=== PATIENT | female | born 1965 | race Caucasian/White ===

== ENCOUNTER 2019-09-08 13:31 | Outpatient (CLI) | payer BC, SELFPAY ==
--- NOTE | ~2019-09-08 | US_ITS ---
US venous doppler LE RT DATE: 09/08/2019 14:05 INDICATION: Right leg pain TECHNIQUE: Real-time and color flow imaging and Doppler analysis of the veins of the right lower extr emity COMPARISON: None FINDINGS: The right greater saphenous vein is patent. There is spontaneous and phasic flow and normal augmentation and color flow signal and normal compression of the deep veins of the right lower extre mity. IMPRESSION: No evidence of deep venous thrombosis of right lower extremity Reviewed, dictated and finalized at Location A. Reviewed, dictated and finalized at location A.
== END 2019-09-08 13:32 | disposition home or self-care (01) ==
PROVIDERS: Visit Provider Podiatrist Foot & Ankle Surgery
DX: M79.661 Pain in right lower leg (principal)
CPT/HCPCS: 93971

== ENCOUNTER 2020-08-07 14:40 | Outpatient (CLI) | payer BC, SELFPAY ==
--- NOTE | 2020-08-07 | ECG_ITS ---
Measurements Intervals [place] Rate: 77 P: 32 SC: 171 QRS: 48 QRSD: 101 T: 50 QT: 393 QTc: 447 Interpretive Statements SINUS RHYTHM NORMAL ECG Electronically Signed On 08-07-2020 15:19:03 MANAGER UNIX by Varinder Metcalf D.O.
== END 2020-08-07 14:41 | disposition home or self-care (01) ==
PROVIDERS: PCP Family Medicine; Visit Provider Podiatrist Foot & Ankle Surgery
DX: R03.0 Elevated blood-pressure reading, without diagnosis of hypertension (principal)
CPT/HCPCS: 93005

== ENCOUNTER 2021-03-26 14:17 | Outpatient (CLI) | payer BC, SELFPAY ==
--- NOTE | ~2021-03-26 | US_ITS ---
EXAMINATION: US venous doppler LE RT EXAM DATE: 03/26/2021 14:42 INDICATION: Right lower extremity pain. TECHNIQUE: Multiple grayscale, color flow and Doppler images of the right lower extremity deep venous system were obtained and reviewed. Comparison is made to prior examination from 09/08/2019. FINDINGS: The right common femoral, femoral and profunda veins demonstrate normal color flow, respira tory variation, augmentation and compressibility. Compressibility, color flow confirmed within the r ight popliteal, posterior tibial, peroneal, and greater saphenous veins. IMPRESSION: 1. No right lower extremity deep venous thrombosis. Reviewed, dictated and finalized at location A.
== END 2021-03-26 14:18 | disposition home or self-care (01) ==
LOC: ANHIMG 14:20
PROVIDERS: PCP Family Medicine; Visit Provider Podiatrist Foot & Ankle Surgery
DX: M79.606 Pain in leg, unspecified (principal)
CPT/HCPCS: 93971

== ENCOUNTER → 2021-07-02 14:10 | Outpatient (CLI) | payer BC, SELFPAY ==
--- NOTE | ~2021-07-02 | MM_ITS ---
EXAMINATION: MM screening [facility] BI w daljit HISTORY: Screening mammogram TECHNIQUE: Craniocaudal and mediolateral oblique 3-D tomosynthesis images were obtained and synthetic 2-D images were generated. CAD analysis was submitted and interpreted. COMPARISON: 08/27/2018, 02/07/2013, 10/03/2010 BREAST PARENCHYMAL COMPOSITION: There are scattered areas of fibroglandular density. FINDINGS: There is no evidence of suspicious mass, calcification, or architectural distortion to sugg est malignancy in either breast. There has been no suspicious interval change. IMPRESSION: 1. No mammographic evidence of malignancy. 2. Recommend routine screening mammography in one year. BI-RADS Category 1: Negative Reviewed, dictated and finalized at location A. RAM EVALUATION CONSULTANT
== END ==
PROVIDERS: Visit Provider Obstetrics & Gynecology
DX: Z12.31 Encounter for screening mammogram for malignant neoplasm of breast (principal)
CPT/HCPCS: 77063; 77067

== ENCOUNTER → 2022-04-08 10:27 | Outpatient (CLI) | payer BC, SELFPAY ==
--- NOTE | ~2022-04-08 | XR_ITS ---
EXAM: XR elbow RT 2V, XR elbow LT 2V DATE: 04/08/2022 10:57 HISTORY: M25.50 - Pain in unspecified joint . COMPARISON: None available. FINDINGS: Normal mineralization. No fracture or dislocation. No lytic or blastic lesion. Joint space s maintained. Mild medial and lateral epicondylar enthesopathy bilaterally. No erosion or periosteal change. Soft tissues within normal limits. IMPRESSION: Mild bilateral medial and lateral epicondylar enthesopathy may reflect the presence of ep icondylitis in the appropriate clinical context. Reviewed, dictated and finalized at location K. IMPRESSION: Mild bilateral medial and lateral epicondylar enthesopathy may refl ect the presence of epicondylitis in the appropriate clinical context.
--- NOTE | ~2022-04-08 | XR_ITS ---
EXAM: XR knee RT 3V, XR knee LT 3V DATE: 04/08/2022 10:57 HISTORY: M25.50 - Pain in unspecified joint . COMPARISON: None available. FINDINGS: Decreased mineralization. No fracture or dislocation. No lytic or blastic lesion. Severe, bone on bone medial joint space narrowing on the left, with varus alignment. Severe lateral joint spa ce narrowing on the right moderate tricompartmental osteophytosis. Moderate volume bilateral knee buck nt fluid No erosion or periosteal change. Soft tissues within normal limits. IMPRESSION: Severe bilateral knee osteoarthritis. Moderate bilateral knee joint effusions. Reviewed, dictated and finalized at location K. IMPRESSION: Severe bilateral knee osteoarthritis. Moderate bilateral knee joint effusions.
== END ==
PROVIDERS: PCP Family Medicine; Visit Provider Physician Assistant
DX: M25.50 Pain in unspecified joint (principal); M17.0 Bilateral primary osteoarthritis of knee; M25.461 Effusion, right knee; M25.462 Effusion, left knee
CPT/HCPCS: 73070; 73562

== ENCOUNTER → 2022-08-06 09:50 | Outpatient (CLI) | payer BC, SELFPAY ==
--- NOTE | ~2022-08-06 | XR_ITS ---
Right foot Technique: AP and lateral views were obtained. Clinical History: Pain Findings: No acute fracture or dislocation is seen. Osseous alignment is anatomic. Orthopedic screws are present traversing the talonavicular joint and the subtalar joint. Remaining visualized joint spa myron are intact. Soft tissues are unremarkable. Impression: Orthopedic fixation of the talonavicular and subtalar joints. No other significant findings. Reviewed, dictated and finalized at location M. ING AND PRINTING MACHINE OPERATOR Impression: Orthopedic fixation of the talonavicular and subtalar joints. No other significant findings.
--- NOTE | ~2022-08-06 | XR_ITS ---
Left foot Technique: AP and lateral standing views were obtained. Clinical History: Pain Findings: No acute fracture or dislocation is seen. Osseous alignment is anatomic. Joint spaces are p reserved without erosive or degenerative change. Soft tissues are unremarkable. Impression: Unremarkable left foot radiographs. Reviewed, dictated and finalized at location . H LAY OUT TECHNICIAN Impression: Unremarkable left foot radiographs.
--- NOTE | ~2022-08-06 | XR_ITS ---
Left Knee Technique: AP, lateral, and sunrise views were obtained. Clinical History: Pain Findings: No fracture or dislocation is seen. There is medial compartment narrowing. There is mild tr icompartmental degenerative spurring. Soft tissues are unremarkable. No joint effusion is seen. Impression: Mild tricompartmental degenerative spurring, with moderate medial compartment narrowing. Reviewed, dictated and finalized at location . RNITY NURSE Impression: Mild tricompartmental degenerative spurring, with moderate medial compartment n arrowing.
--- NOTE | ~2022-08-06 | XR_ITS ---
Right ankle Technique: AP and lateral views were obtained. Clinical History: Pain Findings: No acute fracture or dislocation is seen. Osseous alignment is anatomic. Orthopedic screws are present traversing the talonavicular and subtalar joints. Probable fusion across the subtalar buck nt noted.. Soft tissues are otherwise unremarkable. Impression: No acute abnormality. Orthopedic screws traversing the subtalar and talonavicular joints. Correlate with surgical history. Reviewed, dictated and finalized at location M. UROLOGY Impression: No acute abnormality. Orthopedic screws traversing the subtalar and talonavicular joints. Correlate w ith surgical history.
--- NOTE | ~2022-08-06 | XR_ITS ---
Right elbow Technique: AP and lateral views were obtained. Clinical History: Pain Findings: No acute fracture or dislocation is seen. Osseous alignment is anatomic. Joint spaces are p reserved. There is no displacement of the fat pads, and soft tissues are unremarkable. Impression: Unremarkable radiographs. Reviewed, dictated and finalized at location . OLOGY TECHNICIAN Impression: Unremarkable radiographs.
--- NOTE | ~2022-08-06 | XR_ITS ---
Left Hand Technique: PA and lateral views were obtained. Clinical History: Pain Findings: No acute fracture or dislocation is seen. Osseous alignment is anatomic. Moderate degenerat danielle change present at the first CMC joint. Remaining joint spaces are preserved. Soft tissues are unr emarkable. Impression: Moderate degenerative change at the first CMC joint. Reviewed, dictated and finalized at location . UNT EXECUTIVE METALWORKING Impression: Moderate degenerative change at the first CMC joint.
--- NOTE | ~2022-08-06 | XR_ITS ---
Right Knee Technique: AP and lateral views were obtained. Clinical History: Pain Findings: No fracture or dislocation is seen. There is moderate lateral joint line spurring with prob able lateral compartment narrowing. There is also moderate spurring of the patellofemoral compartment and medial joint line. Soft tissues are unremarkable. No joint effusion is seen. Impression: Moderate tricompartmental degenerative spurring, with probable narrowing of the lateral compartment. Reviewed, dictated and finalized at location M. ER MACHINE OPERATOR Impression: Moderate tricompartmental degenerative spurring, with probable narrowing of the lateral compartment.
--- NOTE | ~2022-08-06 | XR_ITS ---
Left Shoulder Technique: AP and axillary views were obtained. Clinical History: Pain Findings: No fracture or dislocation is seen. Osseous alignment is anatomic. The glenohumeral and acr omioclavicular joint spaces are preserved. Soft tissues are unremarkable. Impression: Unremarkable left shoulder radiographs. Reviewed, dictated and finalized at [facility]. IMEDIA PRODUCTION ASSISTANT Impression: Unremarkable left shoulder radiographs.
--- NOTE | ~2022-08-06 | XR_ITS ---
Left elbow Technique: AP, oblique, and lateral views were obtained. Clinical History: Pain Findings: No acute fracture or dislocation is seen. Osseous alignment is anatomic. Joint spaces are p reserved. There is no displacement of the fat pads, and soft tissues are unremarkable. Impression: Unremarkable radiographs. Reviewed, dictated and finalized at location . DRY AIDE Impression: Unremarkable radiographs.
--- NOTE | ~2022-08-06 | XR_ITS ---
AP and lateral views of the left hip Clinical history: Pain Findings: No acute fracture or dislocation is seen. Osseous alignment is anatomic. Left hip joint spa ce and left visualized SI joint are preserved. Soft tissues are unremarkable. Impression: No significant abnormality is seen. Reviewed, dictated and finalized at [facility]. SE MACHINE WORKER Impression: No significant abnormality is seen.
--- NOTE | ~2022-08-06 | XR_ITS ---
Right wrist Technique: PA and lateral views were obtained. Clinical History: Pain Findings: No acute fracture or dislocation is seen. Osseous alignment is anatomic. Moderate degenerat danielle change present at the first CMC joint.. Remaining joint spaces are preserved. Soft tissues are un remarkable. Impression: Moderate degenerative change of the first CMC joint. Reviewed, dictated and finalized at location . ITIONER TENDER Impression: Moderate degenerative change of the first CMC joint.
--- NOTE | ~2022-08-06 | XR_ITS ---
Left wrist Technique: PA and lateral views were obtained. Clinical History: Pain Findings: No acute fracture or dislocation is seen. Osseous alignment is anatomic. Moderate degenerat danielle change present at the first CMC joint.. Remaining joint spaces are preserved. Soft tissues are un remarkable. Impression: Moderate degenerative change of the first CMC joint. Reviewed, dictated and finalized at location . SAUSAGE CASING TIER OFF Impression: Moderate degenerative change of the first CMC joint.
--- NOTE | ~2022-08-06 | XR_ITS ---
AP and lateral views of the right hip Clinical history: Pain Findings: No acute fracture or dislocation is seen. Osseous alignment is anatomic. Right hip joint an d right visualized SI joint are preserved. Soft tissues are unremarkable. Impression: No significant abnormality is seen. Reviewed, dictated and finalized at [facility]. OYMENT EVALUATOR/CASE MANAGER Impression: No significant abnormality is seen.
--- NOTE | ~2022-08-06 | XR_ITS ---
Right Shoulder Technique: AP and axillary views were obtained. Clinical History: Pain Findings: No fracture or dislocation is seen. Osseous alignment is anatomic. Minimal spurring of the humeral head noted. Minimal AC joint degenerative change noted. Soft tissues are unremarkable. Impression: Minimal degenerative changes, as above. Reviewed, dictated and finalized at [facility]. ET PRINTING OPERATOR Impression: Minimal degenerative changes, as above.
--- NOTE | ~2022-08-06 | XR_ITS ---
Left ankle Technique: AP and lateral views were obtained. Clinical History: Pain Findings: No acute fracture or dislocation is seen. Osseous alignment is anatomic. Ankle mortise and other visualized joint spaces are preserved. Soft tissues are otherwise unremarkable. Impression: Unremarkable left ankle. Reviewed, dictated and finalized at [facility]. DIATION TECHNICIAN Impression: Unremarkable left ankle.
--- NOTE | ~2022-08-06 | XR_ITS ---
Right Hand Technique: PA and lateral views were obtained. Clinical History: Pain Findings: No acute fracture or dislocation is seen. Osseous alignment is anatomic. Mild to moderate d egenerative change present at the first CMC joint. Soft tissues are unremarkable. Impression: No fracture or dislocation. Mild to moderate degenerative change at the first CMC joint. Reviewed, dictated and finalized at [facility]. SOLUTION ARCHITECT Impression: No fracture or dislocation. Mild to moderate degenerative change at the first CMC joint.
== END ==
PROVIDERS: PCP Family Medicine; Visit Provider Internal Medicine Rheumatology
DX: M19.032 Primary osteoarthritis, left wrist (principal); M19.031 Primary osteoarthritis, right wrist; M19.041 Primary osteoarthritis, right hand; M19.042 Primary osteoarthritis, left hand; M17.0 Bilateral primary osteoarthritis of knee
CPT/HCPCS: 73030; 73070; 73100; 73120; 73502; 73560; 73600; 73620

== ENCOUNTER 2022-11-04 14:15 | Outpatient (CLI) | payer BC, SELFPAY ==
--- NOTE | ~2022-11-04 | MR_ITS ---
EXAMINATION: MR knee RT wo con DATE: 11/04/2022 14:51 INDICATION: Bilateral knee pain TECHNIQUE: Magnetic resonance imaging (MRI) of the right knee was performed without intravenous contr ast. Sequences included coronal PD-weighted FSE, coronal PD-weighted FS FSE, sagittal T2-weighted FS E, sagittal PD-weighted FS FSE and axial PD weighted fat saturated FSE. COMPARISON: None. FINDINGS: Medial compartment: Medial meniscus is normal. Partial-thickness chondral ulceration which appears to involve at least 50 % the cartilage thickness with chondral surface regularity along the anterior weightbearing medial fe moral condyle. Deep chondral fissuring at the central aspect of the medial tibial plateau and at the posterior weightbearing medial femoral condyle, both regions without underlying degenerative subchond ral changes. Moderate-sized marginal osteophytes are present. Lateral compartment: There is lateral extrusion of the lateral meniscus with complex tear extending from the anterior horn to the posterior horn with severe anterior horn and body where it has a macerated appearance. Extens danielle full/near full-thickness cartilage loss with early remodeling of the articular cortices and under lying subarticular cystlike and edema-like signal changes along the lateral tibial plateau and weight bearing lateral femoral condyle. Moderate size marginal osteophytes are present. Patellofemoral compartment: Deep chondral fissuring without degenerative subchondral changes following caudal two thirds of the l ateral patellar facet, caudal half the apical ridge and small portion of the cephalad aspect of the m edial patellar facet. Deep chondral ulceration and fissuring along the caudal two thirds of the media l and lateral trochlea and intervening trochlear groove. Moderate size marginal osteophytes are prese nt. Ligaments and tendons: Complete tear of the anterior cruciate ligament. There is increased intrasubstance signal within the midportion of the posterior cruciate ligament which could be related to magic angle artifact or parti al tear. The medial collateral ligament and fibular collateral ligament complex are normal. The exten sor mechanism is normal. The visualized medial and lateral hamstring tendons as well as the iliotibia l band are normal. Fluid: Small right knee joint effusion with mild synovitis primarily at the suprapatellar pouch with additio nal synovitis along the posterior margin of Hoffa's fat pad and at the popliteal recess. There is a s uprapatellar plical band. No loose osteochondral bodies identified. Osseous/other: Mild genu valgus resulting from the severe osteoarthritis in the lateral compartment. No fracture or pathologic marrow replacing process. Subcutaneous varicosities along the lateral side of the knee. IMPRESSION: 1. Complex lateral meniscal tear. 2. Tricompartmental osteoarthritis, severe with extensive high-grade chondral malacia in the lateral compartment and mild with high-grade chondral malacia patellofemoral compartment and moderate grade c hondral malacia in the medial compartment 3. Complete tear of the anterior cruciate ligament. 4. Likely magic angle artifact at the posterior cruciate ligament although could not exclude a partia l tear. 5. Likely reactive moderate sized left knee joint effusion with associated synovitis Reviewed, dictated and finalized at location A. IMPRESSION: 1. Complex lateral meniscal tear. 2. Tricompartmental osteoarthritis, severe with extensive high-grade chondral m alacia in the lateral compartment and mild with high-grade chondral malacia pat ellofemoral compartment and moderate grade chondral malacia in the medial mai rtment 3. Complete tear of the anterior cruciate ligament. 4. Likely magic angle artifact at the poste
--- NOTE | ~2022-11-04 | MR_ITS ---
EXAMINATION: MR knee LT wo con DATE: 11/04/2022 15:13 INDICATION: Bilateral knee pain TECHNIQUE: Magnetic resonance imaging (MRI) of the left knee was performed without intravenous contra st. Sequences included coronal PD-weighted FSE, coronal PD-weighted FS FSE, sagittal T2-weighted FSE , sagittal PD-weighted FS FSE and axial PD weighted fat saturated FSE. COMPARISON: None. FINDINGS: Medial compartment: There is medial extrusion of the medial meniscal body. Subtle amorphous increased signal along the in ner two thirds of the body of the medial meniscus consistent with tear of indeterminate morphology. T here is extensive full/near full-thickness cartilage loss with remodeling of the articular cortex and underlying subarticular edema-like marrow signal change involving the anterior and medial two thirds of the medial tibial plateau. Similar/near full-thickness cartilage loss with subarticular edema-lik e signal change along the anterior to central weightbearing medial femoral condyle. Moderate size mar ginal osteophytes are present. Lateral compartment: There appears to be a discoid lateral meniscus with complex tear of the anterior horn and anterior to the radial tear which extends from medial collateral across the central portion of the discoid menis cus. Small central subchondral osteophyte at the site of a shallow chondral ulceration at the central aspect of the posterior weightbearing lateral femoral condyle. Partial-thickness chondral ulceration along the medial side of the lateral tibial plateau with mild subarticular edema-like signal change along the shoulder the intercondylar eminence. Small to moderate size marginal osteophytes are presen t. Patellofemoral compartment: Partial-thickness chondral ulceration and deep fissuring at the medial patellar facet and inferomedia l aspect of the lateral facet and apical ridge. Deep chondral fissuring and at the trochlear groove. Less severe mild partial-thickness cartilage loss with chondral surface regular date at the medial an d lateral trochlea. There are small central subchondral osteophytes along the inferior aspect of the medial trochlea. Moderate size marginal osteophytes are present. Ligaments and tendons: Complete tear of the anterior cruciate ligament. Posterior cruciate ligament is normal. The medial co llateral ligament and fibular collateral ligament complex are normal. The extensor mechanism is carlos a l. The visualized medial and lateral hamstring tendons as well as the iliotibial band are normal. Fluid: Small knee joint effusion with synovitis at the suprapatellar pouch with additional synovitis along t he posterior margin of Hoffa's fat pad. No loose osteochondral bodies identified. There is a suprapat ellar plical band. Osseous/other: Bone alignment is normal however there is 2 mm thick fluid the articular surfaces of the m edial tibial plateau and medial femoral condyle with minimal genu vara evident on the prior weightbea ring radiographs. No fracture or pathologic marrow replacing process. IMPRESSION: 1. Complex tears of the medial meniscus and discoid lateral meniscus. 2. Tricompartmental osteoarthritis, advanced with extensive high-grade chondral malacia medial compar tment, moderate at the patellofemoral compartment and mild at the lateral compartment each with addit ional moderate and high-grade chondromalacia. 3. Complete tear of the anterior cruciate ligament. Reviewed, dictated and finalized at location A. IMPRESSION: 1. Complex tears of the medial meniscus and discoid lateral meniscus. 2. Tricompartmental osteoarthritis, advanced with extensive high-grade chondral malacia medial compartment, moderate at the patellofemoral compartment and mil d at the lateral compartment each with additional m
== END 2022-11-04 14:16 ==
PROVIDERS: PCP Internal Medicine Rheumatology; Visit Provider Internal Medicine Rheumatology
DX: M17.0 Bilateral primary osteoarthritis of knee (principal); S83.272A Complex tear of lateral meniscus, current injury, left knee, initial encounter; S83.232A Complex tear of medial meniscus, current injury, left knee, initial encounter; S83.512A Sprain of anterior cruciate ligament of left knee, initial encounter; S83.271A Complex tear of lateral meniscus, current injury, right knee, initial encounter; S83.511A Sprain of anterior cruciate ligament of right knee, initial encounter; X58.XXXA Exposure to other specified factors, initial encounter
CPT/HCPCS: 73721

== ENCOUNTER → 2023-01-14 11:57 | Outpatient (CLI) | payer BC, SELFPAY ==
--- NOTE | ~2023-01-14 | MM_ITS ---
EXAMINATION: MM screening [facility] BI w daljit HISTORY: Screening TECHNIQUE: Craniocaudal and mediolateral oblique 3-D tomosynthesis images were obtained and synthetic 2-D images were generated. CAD analysis was submitted and interpreted. COMPARISON: Comparison to multiple prior studies sequentially, with oldest reviewed study dated 06/2018. BREAST PARENCHYMAL COMPOSITION: There are scattered areas of fibroglandular density. FINDINGS: There is no evidence of suspicious mass, calcification, or architectural distortion to sugg est malignancy in either breast. There has been no suspicious interval change. IMPRESSION: 1. No mammographic evidence of malignancy. 2. Recommend routine screening mammography in one year. BI-RADS Category 1: Negative Reviewed, dictated and finalized at location A.
== END ==
PROVIDERS: PCP Family Medicine; Visit Provider Obstetrics & Gynecology
DX: Z12.31 Encounter for screening mammogram for malignant neoplasm of breast (principal)
CPT/HCPCS: 77063; 77067

== ENCOUNTER 2024-09-13 14:23 | Outpatient (CLI) | payer BC, SELFPAY ==
--- NOTE | 2024-09-13 14:36 | ECG_ITS ---
Test Date: 2024-09-13 14:43:13 Measurements Intervals [place] Rate: 87 P: 35 [place]: 163 QRS: 38 QRSD: 94 T: 48 QT: 379 QTc: 457 Interpretive Statements SINUS RHYTHM NORMAL ECG No previous ECG available for comparison Electronically Signed On 09-14-2024 12:10:18 CDT by Ron Kaiser M.D.
--- OUTSIDE RECORDS SUMMARY | 2024-09-13 16:09 | XMS_ITS | Clinical Summary ---
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 Gender Identity Not on file Sexual Orientation Not on file Plan of Treatment Health Maintenance Due Date Last Done Comments Cervical Cancer Screening Pap Smear (Age 30 to 64) Every 3 Years 1963 Colorectal Cancer Screening Colonoscopy (10 Years) 1963 Annual Physical 1966 Hepatitis C 1981 Cervical Cancer Screening Pap with HPV Testing (Age 30 to 64) Every 5 Years 1993 Cervical Cancer Screening with HPV 1993 Mammogram Screening 2003 Zoster Vaccines (1 of 2) 2013 COVID-19 Vaccine ( season) 2024 Influenza Adult (#1) 2024 07/01/2021, 03/22/2020, 03/28/2019, Additional history exists DTaP, Tdap and Td Vaccines (2 - Td or Tdap) 10/03/2024 10/03/2014 RSV Immunization or 60+ Years (1 - 1-dose 75+ series) 2038 Meningococcal B Vaccine Aged Out No l onger eligible based on patient's age to complete this topic Meningococcal Vaccine Aged Out No rubi dion eligible based on patient's age to complete this topic Pneumococcal Vaccine: Pediatrics (0 to 5 Years) and At-Risk Patients (6 to 64 Years) Aged Out No longer eligible based on patient's age to complete this topic RSV Immunizations Under 20 Months Aged Out No longer eligible based on patient's age to complete this topic Insurance [facility] Care Teams Concrete Buildings Assembler Relationship Specialty Start Date End Date Lillie Rivera MD [address] [place] [address] PCP - General FAMILY PRACTICE 09/17/22
--- OUTSIDE RECORDS SUMMARY | 2024-09-13 16:09 | XMS_ITS | Continuity of Care Document ---
Author Organization [facility] Address [address] [place] [address] [address] [place] [address] Phone Care Team Providers Care Poultry Trimmer Name Role Phone Doisy, Edward Unavailable Unavailable Advance Directives Directive Yes / No Effective Date File Name No Information Encounters Encounter Description Practice Location Reason(s) For Visit Diagnoses Date Provider Providers Copied on Encounter [facility], [address] [place] [address] [address], [place], [place], [id number], [place] tel:[phone] [facility] No Information Jul-0 1-200 6 Doisy Edward. [address] , [address], [place], [address], [place]. tel:[phone] Family History Family Member Type Diagnosis Age At Onset No Information Payers Payer name Insurance type Covered constitution party ID Authormadelina nehal(s) [facility] CI [id number] Social History Type Description Quantity Date Captured Comments Sex Female Smoking Status No Information Chief Complaint And Reason For Visit No Information Reason For Referral Reason For Referral No Information History Of Present Illness Encounter Date Complaint History Of Prese nt Illness No Information Functional Status Date Functional Assessmen t No Information Instructions Date Instruction Additional Infor mation No Information Assessments Type Assessment Date No Information Patient Care Teams Name Effective Dates (start - stop) Status Members No Information
--- OUTSIDE RECORDS SUMMARY | 2024-09-13 16:10 | XMS_ITS | Clinical Summary ---
Author Organization [facility] Address [address] [place] [address] Care Team Providers Care Stand Up Comedian Name Role Phone Janice Crawford MD Primary Care Provider [phone] Source Comments [facility],non-owned Affiliates and Associated Physician Practices is amultiple site organization consisting of ambulatory clinics and hospital sitesin [place] and [place]. This disclosure is being madepursuant to the Care Everywhere program and may not contain all information available regarding this patient. Last updated 18.[facility] [employer] Data Allergies No known active allergies Social History Tobacco Use Types Packs/Day Years Used Date Smoking Tobacco: Never Smokeless Tobacco: Never Alcohol Use Standard Drinks/Week Comments Yes 0 (1 standard drink = 0.6 oz pur e alcohol) socially Sex and Gender Information Value Date Recorded Sex Assigned at Not on file Gender Identity Not on file Sexual Orientation Not on file Last Filed Vital Signs Vital Sign Reading Time Taken Comments Blood Pressure 112/71 11/29/2017 1:18 AM CDT Pulse 80 11/29/2017 1:18 AM CDT Temperature 36.7 C (98 F) 11/28/2017 11:02 PM CDT Respiratory Rate 18 11/29/2017 1:18 AM CDT Oxygen Saturation 97% 11/29/2017 1:18 AM CDT Inhaled Oxygen Concentration - - Weight 104.3 kg (230 lb) 11/28/2017 11:02 PM CDT Height 165.1 cm (5' 5 ) 11/28/2017 11:02 PM CDT Body Mass Index 38.27 11/28/2017 11:02 PM CDT Plan of Treatment Health Maintenance Due Date Last Done Comments COLOGUARD (AGES 45-75) - COL ON CA SCREENING 1963 COLON MONITORING 1963 COLONOSCOPY - COLON CA SCREENING 1963 CT COLONOGRAPHY - COLON CA SCREENING 1963 Colorectal Cancer Screening 1963 FIT - COLON CA SCREENING 1963 FLEX SIG - COLON CA SCREENING 1963 LIPID TESTING 1963 MAMMOGRAM 1963 PAP SMEAR 1963 HIV SCREENING 1978 HEPATITIS C SCREENING 07/07/1981 DTAP/TDAP/TD VACCINES (1 - Tdap) 1982 PNEUMOCOCCAL VACCINE 50+ (1 of 1 - PCV) 2013 ZOSTER VACCINE (1 of 2) 2013 COVID-19 VACCINE (1 - 2023-2 5 season) 2024 INFLUENZA VACCINE (#1) 2024 DEPRESSION SCREENING 06/29/2024 Respiratory Syncytial Virus (RSV) Vaccine Pt: or over 60 yrs (1 - 1-dose 75+ series) 2038 HEPATITIS B VACCINE Aged Out No longe r eligible based on patient's age to complete this topic HIB VACCINE Aged Out No longer eligi ble based on patient's age to complete this topic HPV VACCINE Aged Out No longer eligi ble based on patient's age to complete this topic MENINGOCOCCAL (Group B) VACC INE SHARED DECISION-MAKING Aged Out No longer eligibl e based on patient's age to complete this topic MENINGOCOCCAL GROUPS A/C/Y/W VACCINE Aged Out No longer eligible b ased on patient's age to complete this topic PNEUMOCOCCAL VACCINE Aged Out No long er eligible based on patient's age to complete this topic Care Teams Stand Up Comedian Relationship Specialty Start Date End Date Janice Crawford MD [address] [place] [address] [place] [id number] PCP - General 01/05/18
--- OUTSIDE RECORDS SUMMARY | 2024-09-13 16:10 | XMS_ITS | Referral Summary ---
Author Organization [facility] Address [address] [place] [id number] Care Team Providers Care Magnetizer Name Role Phone Lillie Rivera MD Primary Care Provider [phone] Encounters Date Type Department Care Team Description 07/13/2024 8:00 AM CLAY STRUCTURE BUILDER AND SERVICER Office Visit [facility] Orthopaedic Surgery [address] [place] [address] Medical Office [address] [place] [address] Larry Henderson MD Bilateral chronic knee pain (Primary Dx); Bilateral primary osteoarthritis of knee from Last 3 Months Allergies No known active allergies Medications amLODIPine (NORVASC) 10 mg tablet Take 1 tablet (10 mg total) by mouth daily [address] (CYMBALTA) 60 mg capsule Take 1 capsule (60 mg total) by mouth nightly 3 Active hydroCHLOROthia zide (HYDRODIURIL) 12.5 mg tablet Take 1 tablet (12.5 mg total) by mouth daily 3 Active hydroxychloroqu ine (PLAQUENIL) 200 mg tablet 3 Active labetaloL (NORMODYNE,ANTONY DATE) 100 mg tablet Take 1 tablet (100 mg total) by mouth 2 (two) times a day 3 Active losartan (COZAAR) 100 mg tablet Take 1 tablet (100 mg total) by mouth daily 3 Active pramipexole (MIRAPEX) 0.125 mg tablet Take 1 tablet (0.125 mg total) by mouth nightly at bedtime. 3 Active Sunosi 150 mg tablet 3 Active albuterol HFA (PROVENTIL HFA,VENTOLIN HFA,PROAIR HFA) 90 mcg/actuation inhaler INHALE 1 PUFF BY MOUTH EVERY 4 HOURS NEEDED FOR SHORTNESS OF BREATH OR WHEEZING 3 Active meloxicam (MOBIC) 15 mg tablet TAKE 1 TABLET BY MOUTH EVERY MORNING NEEDED JOINT PAIN 4 Active venlafaxine XR (EFFEXOR-XR) 150 mg 24 hr capsule Take 1 capsule (150 mg total) by mouth daily 4 Active Active Problems Problem Noted Date Diagnosed Date Primary osteoarthritis of left knee 05/18/2024 Immunizations Immunization Administration Dates Next Due Influenza, Quadrivalent, Isa l Culture-based MDCK, Preservative Free, Antibiotic Free, Intramuscular 07/01/2021 Influenza, Quadrivalent, Spl it, Preservative Free, Intramuscular 03/22/2020,03/28/2019,03/28/2018 Influenza, Trivalent, IM (MDV) 04/01/2017,2013,03/07/2013 Influenza, Trivalent, Preser vative Free, Intramuscular 04/13/2016,05/02/2015 Tdap 10/03/2014 Social History Tobacco Use Types Packs/Day Years Used Date Smoking Tobacco: Never Tobacco Cessation:Counseling Given: Not Answered Comments Unknown Sex and Gender Information Value Date Recorded Sex Assigned at Not on file Legal Sex Female 10:33 AM CDT Gender Identity Not on file Sexual Orientation Not on file Last Filed Vital Signs Vital Sign Reading Time Taken Comments Blood Pressure - - Pulse - - Temperature - - Respiratory Rate - - Oxygen Saturation - - Inhaled Oxygen Concentration - - Weight 112.5 kg (248 lb) 05/18/2023 1:34 PM CLAY STRUCTURE BUILDER AND SERVICER Height 166.4 cm (5' 5.5 ) 05/18/2023 1:34 PM CLAY STRUCTURE BUILDER AND SERVICER Body Mass Index 40.64 05/18/2023 1:34 PM CLAY STRUCTURE BUILDER AND SERVICER Plan of Treatment Upcoming Encounters Date Type Department Care Team (Latest Contact Info) Description 10/13/2024 11:05 AM CDT Hospital Encounter [facility] Operating Room [id number] [address] Larry Henderson MD [address] [place] [address] 10/13/2024 11:05 AM CDT - 10/13/2024 1:00 PM CDT Surgery [facility] Operating Room [address] [place] [address] Larry Henderson MD [address] [place] [address] ARTHROPLASTY TOTAL KNEE - DEPUY Scheduled Procedures Name Priority Associated Diagnoses Date/Ti me ARTHROPLASTY TOTAL KNEE - DEPUY Primary osteoarthritis of left knee 10/13/2024 11:05 AM CDT Procedures Procedure Name Priority Date/Time Associated Diagnosis Comments AR ARTHROCENTESIS ASPIR&/INJ MAJOR JT/BURSA W/O US Routine 07/13/2024 8:00 AM CLAY STRUCTURE BUILDER AND SERVICER Bilateral chronic knee pain Bilateral primary osteoarthritis of knee from Last 3 Months Results * AR ARTHROCENTESIS ASPIR&/INJ MAJOR JT/BURSA W/O US (07/13/2024 8:00 AM CLAY STRUCTURE BUILDER AND SERVICER) Narrative Larry Henderson MD - 07/13/2024 8:00 AM CLAY STRUCTURE BUILDER AND SERVICER Larry Henderson MD 07/17/2024 9:18 PM Large Joint Injection: bilateral knee Performed by: Larry Henderson MD Authorized by: Larry Henderson MD Large Joint Injection/Aspiration: Consent Given by: Patient Timeout: prior to procedure the correct patient, procedure, and site was verified Verbal consent obtained: Yes Supporting Documentation: Indications: Pain Procedure Details: Location: Knee Site: Bilateral knee Prep: patient was prepped and draped in usual sterile fashion Needle Size: 22 G Approach: Superior lateral Medications Right Large Joint Injection: 6 mL BUPivacaine HCl 0.25 % (2.5 mg/mL); 80 mg triamcinolone 40 mg/mL Medications Left Large Joint Injection: 6 mL BUPivacaine HCl 0.25 % (2.5 mg/mL); 80 mg triamcinolone 40 mg/mL Patient tolerance: Patient tolerated the procedure well with no immediate complications us Larry Henderson MD IN CLINIC/BEDSIDE ORDERAB LES Final Result from Last 3 Months [place] Care Teams Magnetizer Relationship Specialty Start Date End Date Lillie Rivera MD PCP - General Family Medicine 12/02/22
--- OUTSIDE RECORDS SUMMARY | 2024-09-13 16:10 | XMS_ITS | Clinical Summary ---
Author Organization [facility] Address [address] [place] [phone] Care Team Providers Care Telecommunications Linesworker Name Role Phone Lillie Rivera MD Primary Care Provider [phone] Allergies No known active allergies Medications amLODIPine [...] Date Primary osteoarthritis of left knee 05/18/2024 Encounters Date Type Department Care Team Description 07/13/2024 8:00 AM BLASTING CONTRACT MAN Office Visit [facility] Orthopaedic Surgery [address] [place] [address] Medical Office Building [address] [place] [address] Larry Henderson MD Bilateral chronic knee pain (Primary Dx); Bilateral primary osteoarthritis of knee from Last 3 Months Immunizations Immunization Administration Dates Next Due Influenza, [...] on file Sexual Orientation Not on file Obstetrics History Last Filed Vital Signs Vital Sign Reading Time Taken Comments Blood Pressure - - Pulse - - Temperature - - Respiratory Rate - - Oxygen Saturation - - Inhaled Oxygen Concentration - - Weight 112.5 kg (248 lb) 05/18/2023 1:34 PM BLASTING CONTRACT MAN Height 166.4 cm (5' 5.5 ) 05/18/2023 1:34 PM BLASTING CONTRACT MAN Body Mass Index 40.64 05/18/2023 1:34 PM BLASTING CONTRACT MAN Plan of Treatment Upcoming Encounters Date Type Department Care Team (Latest Contact Info) Description 10/13/2024 11:05 AM CDT Hospital Encounter [facility] Operating Room [address] [place] [address] [address] Larry Henderson MD [address] [place] [address] 10/13/2024 11:05 AM CDT - 10/13/2024 1:00 PM CDT Surgery [facility] Operating Room [address] [address] [address] Larry Henderson MD [address] [place] [address] ARTHROPLASTY TOTAL KNEE - DEPUY Scheduled Procedures Name Priority Associated Diagnoses Date/Ti me ARTHROPLASTY TOTAL KNEE - DEPUY Primary osteoarthritis of left knee 10/13/2024 11:05 AM CDT Health Maintenance Due Date Last Done Comments Breast Cancer Screening-Mammogram 1963 Cervical Cancer Screening 1963 Colon Cancer Screening-Colonoscopy 1963 Depression Screening 1963 Hepatitis C Screening 1963 Hepatitis B Screening 1981 Regular Well Visit/Exam 18-64 1981 Pneumococcal vaccine <65 (1 of 2 - PCV) 1982 Zoster Vaccine (1 of 2) 1982 Influenza Vaccine (#1) 2024 2, 03/22/2020, 03/28/2019, Additional history exists DTaP/Tdap/Td Vaccine (2 - Td or Tdap) 10/03/2024 10/03/2014 Procedures Procedure Name Priority Date/Time Associated Diagnosis Comments [place] ARTHROCENTESIS ASPIR&/INJ MAJOR JT/BURSA W/O US Routine 07/13/2024 8:00 AM BLASTING CONTRACT MAN Bilateral chronic knee pain Bilateral primary osteoarthritis of knee from Last 3 Months Results * [place] ARTHROCENTESIS ASPIR&/INJ MAJOR JT/BURSA W/O US (07/13/2024 8:00 AM BLASTING CONTRACT MAN) Narrative Larry Henderson MD - 07/13/2024 8:00 AM BLASTING CONTRACT MAN Larry Henderson MD 07/17/2024 9:18 PM Large [...] [place] Care Teams Telecommunications Linesworker Relationship Specialty Start Date End Date Lillie Rivera MD PCP - General Family Medicine 12/02/22
== END 2024-09-13 14:24 | disposition home or self-care (01) ==
PROVIDERS: PCP Family Medicine; Visit Provider Student in an Organized Health Care Education/Training Program
DX: I10 Essential (primary) hypertension (principal)
CPT/HCPCS: 93005